=== PATIENT | male | born 1955 | race Caucasian/White ===

== ENCOUNTER → 2018-11-16 | Outpatient (CLI) | payer BC, OTHER ==
[~2018-11-16] MED LIST: AMLO10TA5 PO; ASPI81TA85 PO; LISI20TA PO; METO25TA4 PO; PROAAER10 INH; ROSU20TA5 PO; XARE10TA PO
--- NOTE | 2018-11-16 09:13 | REP ---
Clinical: Preoperative assessment (right knee arthroplasty) . Comparison: None . Technique: PA and lateral. Findings: The mediastinum and cardiac silhouette are normal. The lung wu are clear and without acute consolidation, effusion, or pneumothorax. The skeletal structures are intact and normal. Impression: 1. No acute cardiopulmonary process. Electronically Signed by Isai Bell MD 11/16/2018 09:04 A
[2018-11-16 09:19] LABS: HEMATOCRIT 42.6 % (42.0-52.0); HEMOGLOBIN 14.1 g/dl (13.5-17.5); MEAN CORPUSCULAR HGB CONC 33.1 g/dl (32.0-36.5); MEAN CORPUSCULAR VOLUME 87.5 fl (80.0-96.0); PLATELET COUNT, AUTOMATED 288 10^3/uL (150-450); RED BLOOD COUNT 4.87 10^6/uL (4.30-6.10); WHITE BLOOD COUNT 8.7 10^3/uL (4.0-10.0)
[2018-11-16 09:30] LABS: INR 1.36; PROTHROMBIN TIME 16.5 SECONDS (11.8-14.0)
[2018-11-16 09:47] LABS: ALBUMIN 3.4 GM/DL (3.2-5.2); ALT/SGPT 24 U/L (12-78); BILIRUBIN,TOTAL 0.4 MG/DL (0.2-1.0); BLOOD UREA NITROGEN 16 MG/DL (7-18); CALCIUM LEVEL 9.2 MG/DL (8.8-10.2); CARBON DIOXIDE LEVEL 28 MEQ/L (21-32); CHLORIDE LEVEL 102 MEQ/L (98-107); CREATININE FOR GFR 0.96 MG/DL (0.70-1.30); GLOMERULAR FILTRATION RATE > 60.0 (>49); GLUCOSE, FASTING 97 MG/DL (70-100); POTASSIUM SERUM 4.1 MEQ/L (3.5-5.1); SODIUM LEVEL 136 MEQ/L (136-145); TOTAL PROTEIN 7.4 GM/DL (6.4-8.2)
[2018-11-16 09:48] LABS: ERYTHROCYTE SEDIMENTATION RATE 43 mm/hr (0-20)
--- NOTE | 2018-11-17 08:46 | ECGEPIP ---
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
== END ==
LOC: M LAB 08:18
PROVIDERS: ATTEND Orthopaedic Surgery
DX: Z01.818 Encounter for other preprocedural examination (principal)

== ENCOUNTER 2018-12-16 05:41 | Inpatient (IN) | payer BC, OTHER ==
--- NOTE | 2018-12-01 13:10 | HPE ---
DATE OF ADMISSION: 12/01/2018 HISTORY OF PRESENT ILLNESS: Mr. Polanco is a pleasant, 63-year-old male with continuing right knee arthritis pain. He has consented for a right total knee arthroplasty per Dr. Ron Alba. Reports having been cleared by his primary care provider and subsequently, Dr. Emery his manager acute. I am still awaiting documentation clearance. X-rays are consistent with advanced osteoarthritis. ALLERGIES: None known to drugs. MEDICATION LIST: - Xarelto 20 mg - Lisinopril hydrochlorothiazide 20-12.5 mg - amlodipine besylate 10 mg - Rosuvastatin calcium 20 mg - He does use an inhaler occasionally. MEDICAL PROBLEM LIST: 1. Symptomatic right knee osteoarthritis. 2. Enthesopathy, essential hypertension and hypercholesteremia. 3. Depression. 4. Heart attack. SURGICAL HISTORY: 1. Left knee. 2. Coronary artery disease, stenting twice. 3. Appendectomy. FAMILY HISTORY: Cancer, heart disease. SOCIAL HABITS: The patient is a former smoker a pack a day, he occasionally consumes alcohol. He does smoke pot. REVIEW OF SYSTEMS: Denies chest pain, shortness of breath, dyspnea on exertion, fever, chills, malaise, upper respiratory or urinary tract symptoms. EKG result per Dr. Jv Monahan, atrial flutter, inferior ST elevation, needs clinical correlation as read by Dr. Monahan. Chest x-ray, service date , showing no acute cardiopulmonary process. Laboratory studies, service date , PTT 16.5, anion gap 6, albumin-globulin ratio 0.85, ESR was 43. All remaining labs available were unremarkable. GFR was greater than 60, creatinine for GFR 0.96. VITAL SIGNS: Height 70, weight 196, temperature 97.7, blood pressure 100/70. Please note he recently had a medication change for elevated blood pressure. Respirations 18, pulse 79. He is ambulating. PHYSICAL EXAMINATION: She is alert and oriented times three. Mood and affect are appropriate. Normocephalic. Neck supple. Negative jugular venous distention (JVD) or bruits. Lungs were clear on the right, left lower lobe subtle, so for clarity a bit of a wheeze in the left lower lung. The patient states that he is occasionally wheezy with his prior history of smoking and now some continued smoking secondary to pot intake. His chest rises symmetrically. Heart: Regular rate and rhythm. Bowels soft, nontender times four. Lower extremities: Skin intact, benign noninfectious looking. Right knee positive medial joint line tenderness with crepitance through flexion/extension. PFJ is congruent static and dynamic. Negative popliteal fossa, mass or pain. His hip range of motion was not grossly limited or irritable on examination. IMPRESSION: 1. Right knee symptomatic degenerative joint disease (DJD). 2. The patient consented for a right total knee arthroplasty per Dr. Ron Alba. 3. Medical optimization per primary care, and cardiology Dr. Emery. This is per patient history. I am still awaiting documentation. 4. On-call to operating room (OR) 2 grams IV Kefzol in OR. 5. Sequential compressive device (SCD) and thromboembolism deterrents (TEDs) in OR. MTDD
[2018-12-16] VITALS (11 sets, daily range): BP systolic 118–162; BP diastolic 90–109
[~2018-12-16] VITALS: Ht 177.8 cm; Wt 85.7 kg
[~2018-12-16 05:41] MED LIST changes: -LISI20TA PO; +LISI20TA18 PO
[2018-12-16] MEDS ORDERED: LIDOCAINE 1% MDV 20ML VIAL SQ PRN (06:00)
[2018-12-16] MEDS ORDERED: LR 1,000 ML IV ONE (06:00)
[2018-12-16] MEDS ORDERED: MIDAZOLAM INJ 2 MG/2 ML VIAL (J2250) As Ordered ONE ×2 (06:45→07:48)
[2018-12-16] MEDS ORDERED: fentaNYL 100 MCG/2 ML INJECTION (J3010) As Ordered ONE ×2 (06:45→07:48)
[2018-12-16] MEDS ORDERED: EPINEPHrine INJ 1 MG/ML 1ML AMP As Ordered ONE (07:09)
[2018-12-16] MEDS ORDERED: ceFAZolin 1GM INJ (J0690 PER 500MG) As Ordered ONE (07:09)
[2018-12-16] MEDS ORDERED: TRANEXAMIC ACID 100 MG/ML 10ML VIAL As Ordered ONE (07:09)
[2018-12-16] MEDS ORDERED: BUPIVACAINE LIPOSOME/PF 1.3% 20ML VIAL (13.3MG/ML)(EXPAREL)(C9290 PER1MG) As Ordered ONE (07:10)
--- NOTE | 2018-12-16 07:13 | IPN ---
DATE: 12/16/2018 The patient seen and examined. He wished to go ahead with a total knee arthroplasty on the right. He is having ongoing persistent significant pain. He understands the nature of this and the risks of bleeding, infection, damage to nerves, vessels, persistent pain, wear, loosening, blood clots, medical problems, among others.
[2018-12-16] MEDS ORDERED: ALBUTEROL SULFATE 2.5 MG/0.5 ML INH NEB SOLN As Ordered ONE (07:18)
[2018-12-16] MEDS ORDERED: PROPOFOL 200 MG/20 ML VIAL As Ordered ONE ×2 (07:48→08:43)
[2018-12-16] MEDS ORDERED: LIDOCAINE 2% INJ 100 MG/5 ML SDV (FOR ANES.) As Ordered ONE ×2 (07:48→08:43)
[2018-12-16] MEDS ORDERED: BUPIVACAINE/DEXTROSE 0.75% 2 ML AMP As Ordered ONE (07:48)
[2018-12-16] MEDS ORDERED: ESMOLOL INJ 100MG/10ML VIAL As Ordered ONE (07:53)
[2018-12-16] MEDS ORDERED: MIDAZOLAM INJ 2 MG/2 ML VIAL (J2250) IV ONE (08:00)
[2018-12-16] MEDS ORDERED: ALBUTEROL SULFATE 2.5 MG/0.5 ML INH NEB SOLN INH ONE (08:00)
[2018-12-16] MEDS ORDERED: fentaNYL 100 MCG/2 ML INJECTION (J3010) IV ONE (08:00)
[2018-12-16] MEDS ORDERED: METOPROLOL 5 MG/5 ML VIAL As Ordered ONE ×2 (08:34→09:11)
[2018-12-16] MEDS ORDERED: LACTATED RINGER'S 1000 ML IV ONE (09:00)
[2018-12-16] MEDS ORDERED: PHENYLEPHRINE HCL INJ 10 MG in D5W 99 ML IV SCH (09:00)
[2018-12-16] MEDS: METOPROLOL 5 MG/5 ML VIAL IV SCH ×3 (09:18→11:24)
[2018-12-16] MEDS ORDERED: ACETAMINOPHEN TAB 650MG DOSE (2X325MG) PO PRN (09:30)
[2018-12-16] MEDS ORDERED: fentaNYL 100 MCG/2 ML INJECTION (J3010) IV PRN (09:30)
[2018-12-16] MEDS ORDERED: LR 1,000 ML IV SCH ×2 (09:30)
[2018-12-16] MEDS ORDERED: ONDANSETRON 4MG/2ML VIAL (J2405) IV PRN (09:30)
[2018-12-16] MEDS ORDERED: FLEET ENEMA PR PRN (09:30)
[2018-12-16] MEDS ORDERED: HYDROMORPHONE HCL 0.5 MG/ 0.5 ML SYRINGE (J1170 PER 1) IV PRN (09:30)
[2018-12-16] MEDS ORDERED: MORPHINE 4 MG/ML 1ML VIAL/SYRINGE (J2270) IV PRN (09:30)
[2018-12-16] MEDS ORDERED: PERCOCET 5MG/325MG TAB PO PRN (09:30)
[2018-12-16] MEDS ORDERED: PHENYLephrine HCL 500 MCG/5 ML (100MCG/ML) SYRINGE (J2370) IV SCH (09:45)
[2018-12-16] MEDS ORDERED: dexameTHASONE 10 MG/1 ML VIAL PRES.FREE (J1100) ONE (09:49)
[2018-12-16] MEDS ORDERED: MEPIVACAINE HCL 2% 20 ML VIAL (J0670) ONE (09:49)
[2018-12-16] MEDS ORDERED: LIDOCAINE 1% MDV 20ML VIAL ONE (09:49)
[2018-12-16] MEDS ORDERED: NORCO, ANEXSIA 5/325MG TABLET (HYDROcodone/ACETAMINOPHEN) PO PRN (10:00)
--- NOTE | 2018-12-16 11:19 | ECGEPIP ---
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
[2018-12-16] MEDS ORDERED: METOPROLOL 5 MG/5 ML VIAL IV ONE (11:30)
--- NOTE | 2018-12-16 11:48 | CR.PDOC ---
General Date of Consultation: Dec 16, 2018 Referring Provider: YOUSIF EPPS PA-C Consultation CHIEF COMPLAINT: R. knee pain HISTORY OF PRESENT ILLNESS: Patient is a 63 M PMH R. knee OA, CAD s/p PCI, Afib, HTN now s/p R. TKA currently post op in PACU without any complaints. He stated that he procedure went well and he currently denies any complaints including pain post op. He is on Xarelto for reportedly "blockage" in his chest, he is not sure but is noted to have irregular irregular rhythm. Denies any chest pain, SOB, palpitations or extremity pain. PAST MEDICAL HISTORY: Refer to HPI PAST SURGICAL HISTORY: Left knee surgery Status post PCI with stent placement Appendectomy Tonsillectomy SOCIAL HISTORY: Former smoker and alcohol use. Marijuana use. FAMILY HISTORY: Cancer in parents ALLERGIES: Please see below. REVIEW OF SYSTEMS: 10 point review of system negative except as stated in HPI HOME MEDICATIONS: Please see below. PHYSICAL EXAMINATION: General: No acute distress, Alert Eyes: Normal sclera, EOMI, BEST HENT: Atraumatic, neck supple, moist mucous membranes Cardiovascular: Normal rate, irregular irregular rhythm. Pulmonary: Clear to auscultation b/l, no wheezing GI: Soft, nontender, nondistended Extremity: RLE wrapped in bandage c/d/i Skin: Warm and dry Neuro: CN grossly intact. No focal deficits. Strengths equal b/l. Psych: oriented x 3 LABORATORY DATA: See below. IMAGING: Right knee three views postoperative study: There is a total knee arthroplasty with the components tightly applied and in satisfactory positions alignment. There are skin amee. There is intra-articular air and fluid as a postoperative change. ASSESSMENT AND PLAN: 1. R. knee DJD s/p TKA - Doing well post op, pain control. - PT as tolerated once able. 2. Afib/aflutter - c/w Xarelto, resume home dose metoprolol. 3. HLD - c/w crestor 4. CAD - No chest pain. - Resume home meds. 5. HTN - BP controlled. Resume meds. Vital Signs/I&O Vital Signs Date Time Temp Pulse Resp B/P (MAP) Pulse Ox O2 Delivery O2 Flow Rate FiO2 12/16/18 11:35 86 18 116/89 (98) 97 12/16/18 10:10 97.3 8/28/19 07:30 3 Allergies Coded Allergies: No Known Allergies (Unverified , 11/18/18) Home Medications Scheduled Amlodipine Besylate (Amlodipine Besylate) 10 Mg Tablet, 5 MG PO DAILY, (Reported) Aspirin (Aspir 81) 81 Mg Tablet.dr, 81 MG PO DAILY, #30 (Reported) Lisinopril/Hydrochlorothiazide (Lisinopril-Hctz 20-12.5 mg Tab) 1 Each Tablet, 1 TAB PO BID, (Reported) Metoprolol Tartrate (Metoprolol Tartrate) 25 Mg Tablet, 25 MG PO BID, (Reported) Rivaroxaban (Xarelto) 10 Mg Tablet, 20 MG PO DAILY, (Reported) Rosuvastatin Calcium (Rosuvastatin Calcium) 20 Mg Tablet, 20 MG PO DAILY, (Reported) Scheduled PRN Albuterol Sulfate (Proair Hfa) 8.5 Gm Hfa.aer.ad, 2 PUFF INH PRN PRN for WHEEZING, (Reported) MICHELE GLOVER MD Dec 16, 2018 11:48
--- NOTE | 2018-12-16 12:10 | REP ---
Right knee three views postoperative study: There is a total knee arthroplasty with the components tightly applied and in satisfactory positions alignment. There are skin amee. There is intra-articular air and fluid as a postoperative change. Electronically Signed by Kuldip Pelletier MD 12/16/2018 09:53 A
[2018-12-16] MEDS: NORCO, ANEXSIA 5/325MG TABLET (HYDROcodone/ACETAMINOPHEN) PO PRN ×3 (13:15→23:58)
[2018-12-16] MEDS: ROSUVASTATIN 10 MG TAB (CRESTOR) PO SCH (20:14)
[2018-12-16] MEDS: METOPROLOL TART 25 MG TABLET PO SCH (20:15)
[2018-12-17] VITALS (15 sets, daily range): BP systolic 114–147; BP diastolic 63–110
[2018-12-17] MEDS: NORCO, ANEXSIA 5/325MG TABLET (HYDROcodone/ACETAMINOPHEN) PO PRN ×2 (04:03→08:41)
[2018-12-17 06:08] LABS: HEMATOCRIT 39.7 % (42.0-52.0); HEMOGLOBIN 13.4 g/dl (13.5-17.5); MEAN CORPUSCULAR HEMOGLOBIN 29.8 pg (27.0-33.0); MEAN CORPUSCULAR HGB CONC 33.8 g/dl (32.0-36.5); MEAN CORPUSCULAR VOLUME 88.2 fl (80.0-96.0); PLATELET COUNT, AUTOMATED 282 10^3/uL (150-450); WHITE BLOOD COUNT 13.2 10^3/uL (4.0-10.0)
[2018-12-17] MEDS ORDERED: PERC5TAB12 PO (06:39)
[2018-12-17] MEDS: amLODIPine 5 MG TAB PO SCH (08:40)
[2018-12-17] MEDS: METOPROLOL TART 25 MG TABLET PO SCH ×2 (08:40→19:01)
[2018-12-17] MEDS: ASPIRIN 81 MG ENTERIC TAB PO SCH (08:40)
[2018-12-17] MEDS ORDERED: ASPIRIN 81 MG ENTERIC TAB PO SCH (09:00)
[2018-12-17 09:05] LABS: BLOOD UREA NITROGEN 12 MG/DL (7-18); CALCIUM LEVEL 8.9 MG/DL (8.8-10.2); CARBON DIOXIDE LEVEL 30 MEQ/L (21-32); CHLORIDE LEVEL 102 MEQ/L (98-107); CREATININE FOR GFR 0.88 MG/DL (0.70-1.30); GLOMERULAR FILTRATION RATE > 60.0 (>49); GLUCOSE, FASTING 118 MG/DL (70-100); POTASSIUM SERUM 3.8 MEQ/L (3.5-5.1); SODIUM LEVEL 139 MEQ/L (136-145)
[2018-12-17] MEDS ORDERED: METOPROLOL TART 25 MG TABLET PO ONE (10:00)
[2018-12-17] MEDS ORDERED: PERCOCET 5MG/325MG TAB PO PRN (11:30)
[2018-12-17] MEDS ORDERED: METOPROLOL 5 MG/5 ML VIAL IV ONE ×2 (13:00→15:00)
--- NOTE | 2018-12-17 13:28 | RO ---
DATE OF PROCEDURE: 12/16/2018 PREOPERATIVE DIAGNOSIS: Right knee osteoarthritis. POSTOPERATIVE DIAGNOSIS: Right knee osteoarthritis. PROCEDURE: Right total knee arthroplasty using an Attune rotating platform, posterior stabilized size 7 femur, size 8 tibia. 7 polyethylene, 38 patellar button. SURGEON: Dr. Ron Alba COMMUNITY MIDWIFE: Roberto Carlos Armijo ANESTHESIA: Spinal ESTIMATED BLOOD LOSS: Less than 50. COMPLICATIONS: None. INDICATIONS: This is a 63-year-old gentleman who has had some persistent knee pain. He wished to go ahead with knee replacement having failed conservative management. He understood the nature and risks associated with this. DESCRIPTION OF PROCEDURE: The patient was taken the operating room and placed in supine position after spinal anesthesia was induced. The right lower extremity was prepped and draped in the usual sterile fashion. A time out was performed. Tourniquet was inflated. A longitudinal incision was made over the anterior aspect of the knee. Sharp dissection was carried down through the subcutaneous tissue and a medial parapatellar arthrotomy was performed. We controlled hemostasis with the cautery. I everted the patella and flexed the knee up. Used the canal initiating reamer on the femoral side. He did have severe arthritis of his patella and his medial compartment. The intramedullary guide was placed on the femoral side and set at 9 mm and 5 degrees of valgus. The distal femoral cut was made after this was pinned in place. I then sized the femur to be a 7. Pin holes were placed in the end of the femur in the usual fashion with the appropriate amount of external rotation. The cutting block was then secured and the remaining four cuts were made. I protected soft tissues at all times. I then prepared the tibia and the appropriate amount of posterior slope and valgus was dialed into the tibia. This was pinned in place and the appropriate amount of bone was taken off the proximal tibia, 4 mm off the low side. A focusing machine operator was then used to remove soft tissue and osteophytes from either side of the knee. Spacer blocks were then used and a size 7 seemed to be the most appropriate. I did have to do a little bit more of a medial release to achieve balance. I then prepared the tibia. The size 8 tibial tray fit nicely. This was secured in place, drilled, broached. The sulcus cut was done on the end of the femur. I then put in the trial components and it was felt that the posterior cruciate ligament (PCL) was somewhat tight as I flexed the knee. The polyethylene seemed to spit out. He did have good motion, but was I not happy with the tightness of the PCL, so I tried to release the PCL distally at its attachment with a conrad and cautery, but this did not quite completely solve the issue, so I decided to go with a posterior stabilized knee. The cutting block was then placed on the end of the femur. The remaining three cuts were made in the usual fashion and then the trial components were placed with the posterior stabilized rotating platform and this achieved excellent balance and excellent roll back in flexion and excellent stability in extension with the size 7 polyethylene. I then freehand cut the patella removing about 7-8 mm of bone and sized it to be a 38. We placed the drill holes and the drill holes in the end of the femur. The patella tracked reasonably well, but I did decide to somewhat of a lateral release to make it track more appropriately and I was very pleased with the tracking of this point. I then removed the trial components, irrigated copiously and dried the bony surfaces. The salon assistant prepared the bone cement in the modern technique. We then cemented on the tibia, femur, placed the polyethylene, cemented on the patella, removed all excess bone cement. We kept the knee out in extension as the cement hardened. Then repaired the deep layer with #1 Vicryl suture, irrigated copiously and placed in the TXA solution. We also placed the Exparel in the deep tissues. Irrigated the deep layer finally and closed the deep layer with running Stratafix suture. Then irrigated the subcutaneous and closed the subcutaneous with #2-0 Vicryl and the skin with amee. Sterile dressing was applied. The tourniquet was deflated. He was taken to recovery room in stable condition. There were no known complications. He is doing very well in the recovery room.
[2018-12-17] MEDS: PERCOCET 5MG/325MG TAB PO PRN ×2 (16:44→20:46)
--- NOTE | 2018-12-17 17:09 | IPNPDOC ---
Date Seen The patient was seen on 12/17/18. Progress Note SUBJECTIVE: Patient is doing well post op. Now is noticing pain in RLE over surgical site but otherwise denies any other complaints. HR had been irregular. Afib with HR 120s overnight. Transferred to PCU/ICU and being treated for tachycardia. OBJECTIVE PHYSICAL EXAMINATION: General: No acute distress, Alert Eyes: Normal sclera, EOMI, BEST HENT: Atraumatic, neck supple, moist mucous membranes Cardiovascular: tachycardic, irregular irregular. Pulmonary: Clear to auscultation b/l, no wheezing GI: Soft, nontender, nondistended Extremity: RLE wrapped in bandage c/d/i Skin: Warm and dry Neuro: CN grossly intact. No focal deficits. Strengths equal b/l. Psych: oriented x 3 LABORATORY DATA, IMAGING STUDIES, MICROBIOLOGY: Please see below. DVT prophylaxis ordered?: Xarelto ASSESSMENT AND PLAN: 1. R. knee DJD s/p TKA - Doing well post op, pain control. - PT as tolerated once able. 2. Afib/aflutter - c/w Xarelto, resume home dose metoprolol. - Previously on 25mg BID, but up to 50mg BID now which is patient's new home dose of medication. - HR labile 90-110s at this time still, not controlled with Lopressor. - Will try IV Cardizem. 3. HLD - c/w crestor 4. CAD - No chest pain. - Resume home meds. 5. HTN - BP controlled. Resume meds. [facility]O Vital Signs Date Time Temp Pulse Resp B/P (MAP) Pulse Ox O2 Delivery O2 Flow Rate FiO2 12/17/18 16:44 16 12/17/18 16:00 99.0 128 132/90 (104) 96 12/16/18 07:30 3 I&O- Last 24 Hours up to 6 AM 12/17/18 06:00 Intake Total 3060 ml Output Total 750 ml Balance 2310 ml Laboratory Data 24H LABS Laboratory Tests 2 12/17/18 05:40: Anion Gap 7L, Glomerular Filtration Rate > 60.0, Blood Urea Nitrogen 12, Creatinine 0.88, Sodium Level 139, Potassium Level 3.8, Chloride Level 102, Carbon Dioxide Level 30, Calcium Level 8.9 12/17/18 05:42: Nucleated Red Blood Cells % (auto) 0.0 CBC/BMP Laboratory Tests 12/17/18 05:40 Calcium Level 8.9 12/17/18 05:42 Red Blood Count 4.50, Mean Corpuscular Volume 88.2, Mean Corpuscular Hemoglobin 29.8, Mean Corpuscular Hemoglobin Concent 33.8, Red Cell Distribution Width 14.7 H MICHELE GLOVER MD Dec 17, 2018 17:09
[2018-12-17] MEDS ORDERED: RIVAROXABAN 20 MG TAB (XARELTO) PO SCH (18:00)
[2018-12-17] MEDS ORDERED: METOPROLOL TART 50 MG TAB PO ONE (19:00)
[2018-12-17] MEDS ORDERED: diltiaZEM 125 MG in NS 100 ML IV SCH (19:00)
[2018-12-17] MEDS: ROSUVASTATIN 10 MG TAB (CRESTOR) PO SCH (20:10)
[2018-12-17] MEDS: ONDANSETRON 4MG/2ML VIAL (J2405) IV PRN (22:58)
[2018-12-17] MEDS: MORPHINE 4 MG/ML 1ML VIAL/SYRINGE (J2270) IV PRN (22:58)
[2018-12-18] VITALS (11 sets, daily range): BP systolic 106–135; BP diastolic 65–93
[2018-12-18] MEDS: PERCOCET 5MG/325MG TAB PO PRN ×4 (00:52→12:39)
[2018-12-18] MEDS: MORPHINE 4 MG/ML 1ML VIAL/SYRINGE (J2270) IV PRN (04:09)
[2018-12-18 05:01] LABS: HEMATOCRIT 39.2 % (42.0-52.0); HEMOGLOBIN 13.2 g/dl (13.5-17.5); MEAN CORPUSCULAR HEMOGLOBIN 30.3 pg (27.0-33.0); MEAN CORPUSCULAR HGB CONC 33.7 g/dl (32.0-36.5); MEAN CORPUSCULAR VOLUME 90.1 fl (80.0-96.0); PLATELET COUNT, AUTOMATED 269 10^3/uL (150-450); RED BLOOD COUNT 4.35 10^6/uL (4.30-6.10); WHITE BLOOD COUNT 13.7 10^3/uL (4.0-10.0)
[2018-12-18 05:22] LABS: BLOOD UREA NITROGEN 15 MG/DL (7-18); CALCIUM LEVEL 8.6 MG/DL (8.8-10.2); CARBON DIOXIDE LEVEL 31 MEQ/L (21-32); CHLORIDE LEVEL 102 MEQ/L (98-107); CREATININE FOR GFR 0.87 MG/DL (0.70-1.30); GLOMERULAR FILTRATION RATE > 60.0 (>49); GLUCOSE, FASTING 115 MG/DL (70-100); POTASSIUM SERUM 3.8 MEQ/L (3.5-5.1); SODIUM LEVEL 136 MEQ/L (136-145)
[2018-12-18] MEDS: amLODIPine 5 MG TAB PO SCH (07:36)
[2018-12-18] MEDS: ASPIRIN 81 MG ENTERIC TAB PO SCH (07:36)
[2018-12-18] MEDS: METOPROLOL TART 25 MG TABLET PO SCH (07:37)
[2018-12-18] MEDS: ONDANSETRON 4MG/2ML VIAL (J2405) IV PRN (08:09)
[2018-12-18] MEDS ORDERED: AMIODARONE HCL 150 MG in APPROPRIATE DILUENT 1 EA IV STA ×2 (08:46→13:51)
--- NOTE | 2018-12-18 08:50 | IPNPDOC ---
Date Seen The patient was seen on 12/18/18. Progress Note SUBJECTIVE: Patient still offered no complaints this morning, appear very comfortable. HR noted to improve with cardizem drip overnight but became tachy again after stopping the drip this morning. Appear to be mostly sinus tachycardia with paroxysmal Afib. Was given 150mg IV amiodarone this morning with HR now down to 80-90s. OBJECTIVE PHYSICAL EXAMINATION: General: No acute distress, Alert Eyes: Normal sclera, EOMI, BEST HENT: Atraumatic, neck supple, moist mucous membranes Cardiovascular: Normal rate Pulmonary: Clear to auscultation b/l, no wheezing GI: Soft, nontender, nondistended Extremity: RLE wrapped in bandage c/d/i Skin: Warm and dry Neuro: CN grossly intact. No focal deficits. Strengths equal b/l. Psych: oriented x 3 LABORATORY DATA, IMAGING STUDIES, MICROBIOLOGY: Please see below. DVT prophylaxis ordered?: Xarelto ASSESSMENT AND PLAN: 1. R. knee DJD s/p TKA - Doing well post op, pain control. - PT as tolerated once able. 2. Afib/aflutter - c/w Xarelto, resume home dose metoprolol. - Previously on 25mg BID, but up to 50mg BID now which is patient's new home dose of medication. - HR now <100 after Amiodarone. Will f/u with cardiology to see if patient's regimen need any adjustment, otherwise can likely be discharged home today. 3. HLD - c/w crestor 4. CAD - No chest pain. - Resume home meds. 5. HTN - BP controlled. Resume meds. VS, I&O, 24H, Fishbone Vital Signs/I&O Vital Signs Date Time Temp Pulse Resp B/P (MAP) Pulse Ox O2 Delivery O2 Flow Rate FiO2 12/18/18 08:42 18 12/18/18 07:48 112 12/18/18 07:36 109/68 12/18/18 07:01 96.9 98 12/16/18 07:30 3 I&O- Last 24 Hours up to 6 AM0 12/18/18 06:00 Intake Total 2242 ml Output Total 550 ml Balance 1692 ml Laboratory Data 24H LABS Laboratory Tests 2 12/18/18 04:50: Nucleated Red Blood Cells % (auto) 0.0, Anion Gap 3L, Glomerular Filtration Rate > 60.0, Blood Urea Nitrogen 15, Creatinine 0.87, Sodium Level 136, Potassium Level 3.8, Chloride Level 102, Carbon Dioxide Level 31, Calcium Level 8.6L CBC/BMP Laboratory Tests 12/18/18 04:50 Red Blood Count 4.35, Mean Corpuscular Volume 90.1, Mean Corpuscular Hemoglobin 30.3, Mean Corpuscular Hemoglobin Concent 33.7, Red Cell Distribution Width 14.8 H, Calcium Level 8.6 L MICHELE GLOVER MD Dec 18, 2018 08:50
--- NOTE | 2018-12-22 18:23 | DSES ---
DATE OF ADMISSION: 12/16/2018 DATE OF DISCHARGE: 12/18/2018 ATTENDING PHYSICIAN: Dr. Ron Alba ADMISSION DIAGNOSIS: Osteoarthritis, right knee. OTHER DIAGNOSES: 1. Atrial fibrillation. 2. Elevated cholesterol. 3. Coronary artery disease. 4. Hypertension. DISCHARGE DIAGNOSIS: Osteoarthritis, right knee status post right total knee arthroplasty. OPERATION PERFORMED: Right total knee arthroplasty. HISTORY: This is a 63-year-old male patient with progressively worsening right knee pain and stiffness. He failed to improve with conservative management. He was admitted for elective knee replacement on the right side. HOSPITAL COURSE: The patient was admitted on the day of surgery and underwent a right total knee arthroplasty which was uneventful. During his postoperative period, he did develop intermittent tachycardia with bouts of atrial fibrillation. He was treated with Cardizem IV as well as IV amiodarone. Ultimately, his heart rate was controlled. The plan was to postoperatively in the outpatient setting sit down with the human resources hr generalist for followup and he will followup in orthopedics in 10-14 days. He will use Xarelto 10 mg per the protocol as well as thromboembolic-deterrent (DEVAN) stockings for 30 days postoperatively for deep vein thrombosis (DVT) prophylaxis. He will resume his other medications and diet. He will use oral pain medications for pain control. He is weightbearing as tolerated on his right lower extremity. He will move his right knee to prevent stiffness. He was given instructions to include but not limited to wound monitoring and activity limitations. Please refer to the medical record further details.
== END 2018-12-18 15:35 | disposition home or self-care (01) | DRG 302 ==
LOC: M OR 05:41 → M MS5PR 11:55 → M ICU 12-17 11:54
PROVIDERS: ADMIT Orthopaedic Surgery; ATTEND Orthopaedic Surgery
PROC: 0SRC0J9 Replacement of Right Knee Joint with Synthetic Substitute, Cemented, Open Approach (ICD-10-PCS; principal; 2018-12-16 07:30)
DX: M17.11 Unilateral primary osteoarthritis, right knee (principal); I10 Essential (primary) hypertension; E78.00 Pure hypercholesterolemia, unspecified; F32.9 Major depressive disorder, single episode, unspecified; I25.2 Old myocardial infarction; Z79.01 Long term (current) use of anticoagulants; Z79.899 Other long term (current) drug therapy; Z87.891 Personal history of nicotine dependence; I25.10 Atherosclerotic heart disease of native coronary artery without angina pectoris; I48.91 Unspecified atrial fibrillation; Z95.5 Presence of coronary angioplasty implant and graft; Z90.49 Acquired absence of other specified parts of digestive tract

== ENCOUNTER → 2021-02-23 | Outpatient (CLI) | payer BC, OTHER ==
[~2021-02-23] MED LIST changes: -AMLO10TA5 PO; +AMLO1TAB25 PO; -ASPI81TA85 PO; +ASPI81TA86 PO; +ISOVUE-370 76% 100ML VIAL As Ordered ONE; -LISI20TA18 PO; +LISI20TA35 PO; +PERC5TAB12 PO
--- NOTE | 2021-02-23 09:41 | REPVR ---
PROCEDURE INFORMATION: Exam: CT Angiography Head With Contrast, Arteriography Exam date and time: 02/23/2021 9:20 AM Age: 65 years old Clinical indication: Condition or disease; Aneurysm, cerebral; Additional info: Small cell b-cell lymphoma, cerebral aneurysm TECHNIQUE: Imaging protocol: Computed tomography angiography of the head with contrast. Exam focused on the arteries. 3D rendering (Not supervised by radiologist): MIP and/or 3D reconstructed images were created by the technologist. Radiation optimization: All CT scans at this facility use at least one of these dose optimization techniques: automated exposure control; mA and/or kV adjustment per patient size (includes targeted exams where dose is matched to clinical indication); or iterative reconstruction. Contrast material: ISOVUE 370; Contrast volume: 100 ml; Contrast route: INTRAVENOUS (IV); COMPARISON: No relevant prior studies available. FINDINGS: ANTERIOR CIRCULATION: Right internal carotid artery: There are coarse calcific atherosclerotic changes of the right carotid siphon. There is severe stenosis of the right clinoid/supraclinoid internal carotid artery segment. Right middle cerebral artery: There is a 10 x 7 mm saccular aneurysm at the M1/M2 junction of the right middle cerebral artery. Right anterior cerebral artery: Unremarkable. No occlusion or significant stenosis. No aneurysm. Left internal carotid artery: There are coarse calcific atherosclerotic changes of the left carotid siphon. Left middle cerebral artery: Unremarkable. No occlusion or significant stenosis. No aneurysm. Left anterior cerebral artery: Unremarkable. No occlusion or significant stenosis. No aneurysm. POSTERIOR CIRCULATION: Right vertebral artery: Unremarkable. No occlusion or significant stenosis. No aneurysm. Left vertebral artery: Unremarkable. No occlusion or significant stenosis. No aneurysm. Basilar artery: Unremarkable. No occlusion or significant stenosis. No aneurysm. Right posterior cerebral artery: Unremarkable. No occlusion or significant stenosis. No aneurysm. Left posterior cerebral artery: Unremarkable. No occlusion or significant stenosis. No aneurysm. Brain: No definite mass, mass effect, or midline shift. Cerebral ventricles: No ventriculomegaly. Bones/joints: Unremarkable. No acute fracture. Soft tissues: Unremarkable. 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 Electronically signed by: Corin Nelson On 02/23/2021 09:41:03 AM
== END ==
LOC: M RAD 08:42
PROVIDERS: ATTEND Internal Medicine Hematology & Oncology
DX: C83.08 Small cell B-cell lymphoma, lymph nodes of multiple sites (principal); I67.1 Cerebral aneurysm, nonruptured

== ENCOUNTER → 2021-03-05 | Outpatient (CLI) | payer MEDICARE, BC, OTHER ==
[~2021-03-05] MED LIST changes: -ISOVUE-370 76% 100ML VIAL As Ordered ONE
== END ==
LOC: M LABSMTC 11:03
PROVIDERS: ATTEND Neurological Surgery
DX: Z20.822 Contact with and (suspected) exposure to COVID-19 (principal)

== ENCOUNTER → 2021-04-16 | Outpatient (CLI) | payer BC, OTHER, MEDICARE | LOC: M LABSMTC 13:16 | PROVIDERS: ATTEND Neurological Surgery | DX: Z11.52 Encounter for screening for COVID-19 (principal) ==

== ENCOUNTER → 2021-04-26 | Outpatient (CLI) | payer BC, OTHER, MEDICARE | LOC: M LABSMTC 09:50 | PROVIDERS: ATTEND Neurological Surgery | DX: Z11.52 Encounter for screening for COVID-19 (principal) ==